=== PATIENT | female | born 1970 | race Caucasian/White ===

== ENCOUNTER → 2022-04-29 | Outpatient (CLI) | payer OTHER, SELFPAY ==
--- NOTE | 2022-04-29 | TOBX_PTH ---
PATIENT: ALAINA GONZALEZ LOC: [facility] U#:[id number] AGE/SX: 51/F ROOM: RE04/29/[address]: Dr. Ken Davis DDS : 1970 BED: DIS: 04/29/2022 SPEC #: [id number] RECD: 04/29/22 13:05 STATUS: CHIO SIMBA #: [id number] NELLY: 04/29/22 00:[address]: Ken Davis DEPT: SURGICAL PATHOLOGY RECD BY: Nathan Welch ENTERED: 05/03/22 08:59 SP TYPE: TONGUE BX OTHR DR: Dr. Felicity Govea, DO Tissues: Tongue, NOS Procedures: Surgery Specimen Level IV HEADER OPERATION: Biopsy left tongue PRE-OP DIAGNOSIS: Several month history for growth TISSUE SUBMITTED: Left lateral tongue MICROSCOPIC DIAGNOSIS Left lateral tongue lesion, biopsy: Subepithelial fibrosis, consistent with irritation fibroma. Focal mild squamous epithelial atypia, favor reactive. See comment. SJ:balbir 05/04/2022 COMMENT Immunohistochemistry ([id number]) for surrogate HPV marker (p16) supports the above diagnosis. Case has been reviewed in consultation with Dr. Shelton who concurs with the above diagnosis. IDC:AM MICROSCOPIC DESCRIPTION Slides are reviewed. GROSS DESCRIPTION Received in fixative is one container labeled with the patient's name and designated tongue. The specimen consists of a piece of lorenz, indurated mucosal tissue measuring 0.5 x 0.4 x 0.3 cm. The specimen is inked, bisected and submitted entirely in one cassette. / ELIZABETH:balbir 05/03/2022 TC:5 CPT: 27609
--- NOTE | 2022-04-29 | IMM_PTH ---
PATIENT: ALAINA GONZALEZ LOC: [facility] U#:[id number] AGE/SX: 51/F ROOM: RE04/29/[address]: Dr. Ken Davis DDS : 1970 BED: DIS: 04/29/2022 SPEC #: [id number] RECD: 05/04/22 13:21 STATUS: CHIO REQ #: [id number] NELLY: 04/29/22 00:[address]: Ken Davis DEPT: IMMUNOHISTOCHEMISTRY RECD BY: Saloni Warren ENTERED: 05/04/22 13:22 SP TYPE: IMMUNO OTHR DR: Dr. Felicity Govea, DO Tissues: Tongue, NOS Procedures: p16 (initial) KI-67 (add) PHYSICIAN & INSTITUTION [place] [id number] SPECIMEN INFORMATION: Tissue Source: Left lateral tongue Clinical Info: Several month history for growth Specimen Number: [id number] CPT code: 50425, 09865 METHODOLOGY: Deparaffinized sections of prefer/formalin-fixed tissue or PAP/DQ stained slides are incubated with monoclonal/polyclonal antibodies/oligonucleotide probes. Localization is made via biotin free immunoperoxidase method. Appropriate controls are performed and reacted as expected. Results on target cell population are indicated in the following table: RESULTS: ANTIBODY / CLONE RESULT P16 (E6H4) negative Ki-67 (30-9) negative These tests were developed and their performance characteristics determined by [facility]. They may not have been cleared or approved by the [place]. Food and Drug Administration. The FDA has determined that such clearance or approval is not necessary. The above immunohistochemical/dualISH markers are ordered and reviewed by the Pathologist. INTERPRETATION: Left lateral tongue, biopsy: Mild epithelial atypia, favor reactive. ELIZABETH:balbir 05/05/2022
== END | disposition home or self-care (01) ==
LOC: LABSPEC 13:33
PROVIDERS: PCP Internal Medicine; Referring Provider Dentist Oral and Maxillofacial Surgery; Visit Provider Dentist Oral and Maxillofacial Surgery
DX: K14.8 Other diseases of tongue (principal)
CPT/HCPCS: 88305; 88341; 88342

== ENCOUNTER → 2022-12-16 | Outpatient (CLI) | payer OTHER, SELFPAY ==
--- NOTE | 2022-12-16 10:41 | RAD_ITS ---
STUDY: X-RAY - SOFT TISSUE NECK REASON FOR EXAM: Female, 52 years old. cervicalgia TECHNIQUE: 2 view(s) of the neck were obtained. COMPARISON: None. FINDINGS: Mild torticollis. Normal visualized nasopharynx, oropharynx, hypopharynx. Normal epiglottis. Normal visualized subglottic tracheal air column. Normal prevertebral soft tissue structures. Normal visualized osseous structures. The soft tissue structures are unremarkable. Disc space narrowing C6-7. Ossification of the ligamentum nuchae. RAD/Neck for Soft Tissue IMPRESSION: Degenerative disc disease and enthesopathy as above. Electronically Signed: Tyrone Quinteros MD at 20:58 EDT ,
[2022-12-16 12:09] LABS: Absolute Lymphocyte Count 1.22 X10^3/uL (0.83-4.51); Absolute Neutrophil Count 3.6 X10^3/uL (2.0-7.7); Basophil# 0.03 X10^3/uL; Basophil% 0.6 % (0-1); Eosinophil# 0.04 X10^3/uL; Eosinophils% 0.7 % (0-5); Hematocrit 43.4 % (37-47); Hemoglobin 14.2 g/dL (12.0-15.0); Lymphocyte # 1.22 X10^3/ul (0.83-4.51); Lymphocyte % 22.8 % (19-41); Mean Corp Hgb Conc 32.7 g/dL (32-36); Mean Corpuscular Hgb 30.3 pg (27.0-32.0); Mean Corpuscular Volume 92.5 fL (81-99); Mean Platelet Vol. 11.6 fl (6.2-12.0); Monocyte# 0.42 X10^3/uL; Monocyte% 7.8 % (0-10); NRBC Flagged by Analyzer 0 % (0-5); Neutrophil # 3.62 X10^3/uL (2.7-7.7); Neutrophil % 67.5 % (47-70); Platelet Count 225 K/mm3 (150-450); RBC Distribution Width CV 12.4 % (11.6-14.6); RBC Distribution Width SD 42.2 fl (35.1-43.9); Red Blood Count 4.69 M/mm3 (4.2-5.4); White Blood Count 5.4 K/mm3 (4.4-11.0)
[2022-12-16 12:33] LABS: Albumin, Serum 3.9 g/dL (3.2-5.0); BUN 13 mg/dL (7-18); BUN/Creat Ratio 16.4 RATIO (10-20); Creatinine, Serum 0.79 mg/dL (0.55-1.02); EST Glomerular Filtration Rate 81 mL/min (>60); Est Glom Filt Rate - Afr Amer 99 mL/min (>60); Globulin 3.1 g/dL (2.2-4.2); Glucose 94 mg/dL (74-106)
[2022-12-16 12:34] LABS: ALB/GLOB Ratio 1.3 RATIO (0.9-2.4); AST(SGOT) 18 U/L (15-37); Alanine Aminotransfer ALT/SGPT 24 U/L (13-56); Alkaline Phosphatase 54 U/L (45-117); Anion Gap 2 (5-15); Calcium,Total 8.6 mg/dL (8.5-10.1); Chloride 109 mmol/L (98-107); Cholesterol 213 mg/dL (200); High Density Lipoprotein 69 mg/dL; Potassium 3.7 mmol/L (3.5-5.1); Sodium Level 136 mmol/L (136-145); Triglycerides 82 mg/dL; Very Low Density Lipoprotein 16 mg/dL (5-40)
[2022-12-16 12:38] LABS: Vitamin D,25 Hydroxy 34.3 ng/mL
[2022-12-16 12:40] LABS: Hemoglobin A1c 4.9 % (3.8-5.6)
== END | disposition home or self-care (01) ==
LOC: MTLAB 10:37
PROVIDERS: PCP Family Medicine; Referring Provider Family Medicine; Visit Provider Family Medicine
DX: Z00.00 Encounter for general adult medical examination without abnormal findings (principal); M54.2 Cervicalgia; E55.9 Vitamin D deficiency, unspecified; Z13.220 Encounter for screening for lipoid disorders; Z13.1 Encounter for screening for diabetes mellitus; Z13.0 Encounter for screening for diseases of the blood and blood-forming organs and certain disorders involving the immune mechanism
CPT/HCPCS: 36415; 70360; 80053; 80061; 82306; 83036; 85025